=== PATIENT | male | born 1995 | race Two or more races ===

== ENCOUNTER 2019-11-30 07:18 | Emergency (ER) | payer MEDICAID ==
[~2019-11-30] VITALS: Ht 180.3 cm; Wt 114.4 kg
[2019-11-30] MEDS ORDERED: LORazepam 1MG TABLET PO ONE (08:00)
[2019-11-30] MEDS ORDERED: LORazepam 1MG TABLET ONE (08:13)
[2019-11-30 08:20] LABS: BASOPHILS # (AUTO) 0.03 x10^3/uL (0-0.1); BASOPHILS % (AUTO) 1 % (0-1); EOSINOPHILS # (AUTO) 0.04 x10^3/uL (0-0.4); EOSINOPHILS % (AUTO) 1 % (1-7); LYMPHOCYTES # (AUTO) 1.53 x10^3/uL (1-3.4); LYMPHOCYTES % (AUTO) 26 % (22-44); MD NO; MEAN CORPUSCULAR HEMOGLOBIN 32.9 pg (27.5-34.5); MEAN CORPUSCULAR VOLUME 96.7 fL (81-97); MEAN PLATELET VOLUME 10.4 fL (7.4-10.4); MONOCYTES # (AUTO) 0.68 x10^3/uL (0.2-0.8); MONOCYTES % (AUTO) 12 % (2-9); NEUTROPHILS # (AUTO) 3.64 x10^3/uL (1.8-6.8); NEUTROPHILS % (AUTO) 61 % (42-75); PLATELET COUNT 190 x10^3/uL (130-400); RED BLOOD COUNT 5.11 x10^6/uL (4.38-5.82); RED CELL DISTRIBUTION WIDTH 12.4 % (9.4-14.8)
[2019-11-30 08:30] LABS: ALBUMIN 4.7 g/dL (3.4-5.0); ANION GAP 9 mmol/L (5-15); CALCIUM 9.6 mg/dL (8.5-10.1); CHLORIDE 108 mmol/L (98-107)
[2019-11-30 08:32] LABS: ALANINE AMINOTRANSFERASE 184 U/L (12-78); ALKALINE PHOSPHATASE 54 U/L (45-117); BILIRUBIN,TOTAL 1.4 mg/dL (0.2-1.0); CREATININE 1.05 mg/dL (0.7-1.3); TOTAL PROTEIN 8.3 g/dL (6.4-8.2)
[2019-11-30 08:33] LABS: SALICYLATE LEVEL < 1.7 mg/dL (2.8-20.0)
[2019-11-30 08:35] LABS: AMPHETAMINE SCREEN, URINE Negative (Negative); BARBITURATE SCREEN, URINE Negative (Negative); BENZODIAZEPINE SCREEN, URINE Negative (Negative); CANNABINOID SCREEN, URINE Negative (Negative); COCAINE SCREEN, URINE Negative (Negative); METHADONE SCREEN, URINE Negative (Negative); OPIATE SCREEN, URINE Negative (Negative)
[2019-11-30 10:31] VITALS: BP 148/79
== END 2019-11-30 10:32 | disposition home or self-care (01) ==
LOC: ED 07:57
DX: F43.0 Acute stress reaction (principal); F41.9 Anxiety disorder, unspecified; F10.239 Alcohol dependence with withdrawal, unspecified; R44.3 Hallucinations, unspecified; F10.251 Alcohol dependence with alcohol-induced psychotic disorder with hallucinations; I10 Essential (primary) hypertension; Y90.0 Blood alcohol level of less than 20 mg/100 ml
CPT/HCPCS: 36415; 80053; 80307; 85025; 93005; 99284

== ENCOUNTER 2019-12-01 13:53 | Emergency (ER) | payer MEDICAID ==
[~2019-12-01] VITALS: Ht 180.3 cm; Wt 114.4 kg
[2019-12-01 13:58] VITALS: BP 143/98
--- NOTE | 2019-12-01 14:44 | NUR ---
Signed out AMA shortly after triage.
== END 2019-12-01 14:48 | disposition left against medical advice (07) ==
LOC: ED 14:08
DX: F41.9 Anxiety disorder, unspecified (principal)
CPT/HCPCS: 99281

== ENCOUNTER 2019-12-06 16:54 | Emergency (ER) | payer MEDICAID ==
[~2019-12-06] VITALS: Ht 180.3 cm; Wt 108.1 kg
--- NOTE | 2019-12-06 18:10 | NUR ---
TASK RN: PT TO ROOM FROM LOBBY, REFUSING TO REMOVE PANTS BUT AGREEABLE TO WEARING GOWN.
--- NOTE | 2019-12-06 18:23 | NUR ---
TASK RN: PT HERE WITH FAMILY. PT AAO X 3-4, FOLLOWING COMMANDS, VERY SLOW TO RESPOND. PER FAMILY, PT HAS A HX ANXIETY AND ANGER PROBLEMS AND SELF MEDICATES WITH DRUGS AND ETOH DAILY IN "LARGE AMOUNTS" PT IN GOWN AND ON MONITOR. SIDERAIL X [address] PT ON ROOM AIR, NAD, FAMILY AT BEDSIDE.
--- NOTE | 2019-12-06 18:29 | NUR ---
TASK RN: BEDSIDE REPORT GIVEN TO SKINNY LITTLEJOHN.
--- NOTE | 2019-12-06 18:31 | NUR ---
Note jennycan in EDM - 12/06/19 at 1835 by RACHEL Pt behaving in a disoriented manner, pt begins to answer questions and this is unable to answer them. Pts family reports that he uses drugs heavily and is unable to orient thoughts. Pt reports that he states this rn is the one who messed him up. This is first encounter with pt and rn. Pt left in [facility] and family asked to stay to keep patient calm. Appears to be a/ox3
--- NOTE | 2019-12-06 18:35 | NUR ---
Pt behaving in a disoriented manner, pt begins to answer questions and this is unable to answer them. Pts family reports that he uses drugs heavily and is unable to orient thoughts. Pt reports that he states this rn is the one who messed him up. This is first encounter with pt and rn. Pt left in [facility] and family asked to stay to keep patient calm. Appears to be a/ox3
[2019-12-06] MEDS ORDERED: LORazepam 1MG TABLET ONE (19:29)
[2019-12-06] MEDS ORDERED: LORazepam 1MG TABLET PO ONE (19:30)
--- NOTE | 2019-12-06 19:34 | NUR ---
Pt medicated per emar.
--- NOTE | 2019-12-06 19:42 | NUR ---
Pt asked for urine, pt unable to provide.
[2019-12-06] MEDS ORDERED: LORazepam 1MG TABLET PO PRN (20:30)
[2019-12-06] MEDS ORDERED: HALOPERIDOL 5 MG TABLET PO ONE (20:30)
[2019-12-06] MEDS ORDERED: HYDROcodone/APAP 5/325 TABLET PO ONE (20:30)
--- NOTE | 2019-12-06 21:00 | NUR ---
Sitter at bedside for continous safety monitoring. Present and remains at door.
[2019-12-06] MEDS ORDERED: HYDROcodone/APAP 5/325 TABLET ONE (21:17)
--- NOTE | 2019-12-06 21:34 | NUR ---
RAD x 2 attempts to get pt to Xray. unwilling and getting agitated.
--- NOTE | 2019-12-06 21:34 | NUR ---
Labs drawn, slow draw. Pt getting anxious with draw. Pt informed redraw may occur.
--- NOTE | 2019-12-06 21:37 | NUR ---
Pt medicated for pain.
[2019-12-06 21:42] LABS: BASOPHILS # (AUTO) 0.02 x10^3/uL (0-0.1); BASOPHILS % (AUTO) 0 % (0-1); EOSINOPHILS # (AUTO) 0.16 x10^3/uL (0-0.4); EOSINOPHILS % (AUTO) 2 % (1-7); LYMPHOCYTES # (AUTO) 2.01 x10^3/uL (1-3.4); LYMPHOCYTES % (AUTO) 23 % (22-44); MD NO; MEAN CORPUSCULAR HEMOGLOBIN 32.6 pg (27.5-34.5); MEAN CORPUSCULAR HGB CONC 33.2 g/dL (33.2-36.2); MEAN CORPUSCULAR VOLUME 98.2 fL (81-97); MEAN PLATELET VOLUME 11.1 fL (7.4-10.4); MONOCYTES # (AUTO) 0.72 x10^3/uL (0.2-0.8); MONOCYTES % (AUTO) 8 % (2-9); NEUTROPHILS # (AUTO) 5.68 x10^3/uL (1.8-6.8); NEUTROPHILS % (AUTO) 66 % (42-75); PLATELET COUNT 190 x10^3/uL (130-400); RED BLOOD COUNT 5.34 x10^6/uL (4.38-5.82); RED CELL DISTRIBUTION WIDTH 12.7 % (9.4-14.8)
--- NOTE | 2019-12-06 22:00 | NUR ---
Sitter at bedside for continous safety monitoring. Present and remains at door.
--- NOTE | 2019-12-06 23:00 | NUR ---
Sitter at bedside for continous safety monitoring. Present and remains at door.
--- NOTE | 2019-12-06 23:40 | NUR ---
LABS COLLECTEDAND SENT TO LAB.
[2019-12-06 23:41] LABS: ANION GAP 10 mmol/L (5-15); CALCIUM 9.4 mg/dL (8.5-10.1); CHLORIDE 111 mmol/L (98-107)
[2019-12-06 23:42] LABS: ALANINE AMINOTRANSFERASE 109 U/L (12-78); ALBUMIN 4.6 g/dL (3.4-5.0); SALICYLATE LEVEL < 1.7 mg/dL (2.8-20.0)
[2019-12-06 23:45] LABS: ALKALINE PHOSPHATASE 51 U/L (45-117); BILIRUBIN,TOTAL 1.1 mg/dL (0.2-1.0); TOTAL PROTEIN 8.6 g/dL (6.4-8.2)
--- NOTE | 2019-12-07 00:07 | NUR ---
late entry: pt on arrival reported visual halucinations that have resolved now. pt at no point has made homicidal statement or suicidal statments. Pts cognition at this time makes it difficult for him to answer questions but does answer some. Pt introduced to new SKINNY Wilkerson. Pt receptive and verbalizing he would drink more water. awaiting further orders.
--- NOTE | 2019-12-07 00:08 | NUR ---
BEDSIDE REPORT FROM SKINNY LITTLEJOHN. PT SITTING UP IN [facility], WENDY NOTED. PT CALM AND COOPERATIVE AT THIS TIME. PO FLUIDS PROVIDED; PT INTERACTING APPROPIRATELY WITH STAFF, RESPONDS "THANK YOU" TO FLUIDS PROVIDED. PT ANSWERING QUESTION APPROPRIATELY THOUGH SLOW TO RESPOND. URINAL AT BEDSIDE AND PT AWARE OF NEED FOR URINE SAMPLE. PT AGREES TO PROVIDE WHEN ABLE. PT/FAMILY UPDATED TO POC (UA/RESULTS/PSYCH CONSULT) AND IS AGREEABLE. PT IN NON-SECURE ROOM. ACCORDING TO REPORT, PT WITH IMPROVED COMPLIANCE AND IS NOW CALM- IN EFFORT TO NOT DISTURB MILLEU PT NOT TO BE MOVED AT THIS TIME. PT DENIES SI/HI AND HAS BEEN APPROPRIATE WITH CABLES/CORDS/FIXTURES IN ROOM. SITTER PRESENT.
--- NOTE | 2019-12-07 00:09 | NUR ---
bedside report to raghu medeiros.
--- NOTE | 2019-12-07 01:00 | NUR ---
PT SITTING UP IN [facility]. NO URINE PRODUCED. ADDITIONAL PO FLUIDS PROVIDED. FAMILY REMAINS AT BEDSIDE. SITTER PRESENT.
--- NOTE | 2019-12-07 01:45 | NUR ---
PT CONTINUES TO REPORT INABILITY TO PRODUCE UA. PT ASKED TO ATTEMPT. PT AMBULATED STEADILY TO BATHROOM WITH RN AND MOTHER TO ATTEMPT UA. APPROX 300ML DARK URINE PRODUCED. UA COLLECTED AND SENT TO LAB.
--- NOTE | 2019-12-07 02:04 | NUR ---
PT MOVED TO ROOM 39. PT IS COMPLIANT, BUT BECOMING RESTLESS WITH MOVE. WHILE RN WAS HELPING MOTHER COLLECT BELONGINGS, PT BECOMING AGGITATED "WHAT ARE YOU DOING WITH MY SHIT?!". MOTHER HAS CALMING EFFECT ON PT. PT/MOTHER TO NEW ROOM AND MADE COMFORTABLE. SITTER REMAINS PRESENT. POC IS SOC CONSULT FOLLOWING UDS/UA RESULTS. REPORT TO SKINNY POPE.
--- NOTE | 2019-12-07 02:13 | NUR ---
REPORT FROM NIVIA ASSUMED CARE OF PT, MOTHER AND SISTER AT , PT SLOW TO RESPOND TO QUESTIONS
[2019-12-07 02:24] LABS: MICROSCOPIC AUTO
[2019-12-07 02:33] LABS: CULTURE INDICATED? NO
[2019-12-07 02:35] LABS: AMPHETAMINE SCREEN, URINE Negative (Negative); BARBITURATE SCREEN, URINE Negative (Negative); BENZODIAZEPINE SCREEN, URINE Negative (Negative); CANNABINOID SCREEN, URINE Negative (Negative); COCAINE SCREEN, URINE Negative (Negative); METHADONE SCREEN, URINE Negative (Negative); OPIATE SCREEN, URINE Positive (Negative)
--- NOTE | 2019-12-07 03:02 | NUR ---
PT HAS HIS MOTHERS PURSE IN THE BED WITH HIM AT THIS TIME ROOM UNSECURED, SECURITY CALLED TO SECURE THE ROOM AN PTS BELONGINGS
--- NOTE | 2019-12-07 03:27 | NUR ---
ROOM SECURE DOORS DOWN, MOTHER AND SIBLING WENT HOME, SITTER AT BEDSIDE, BAG 1 OF 1 IN LOCKER
[2019-12-07] MEDS ORDERED: LORazepam 1MG TABLET ONE (03:40)
[2019-12-07] MEDS ORDERED: KETAMINE 100 MG/ML, 5ML IM ONE (04:00)
--- NOTE | 2019-12-07 04:30 | NUR ---
PT PACING ROOM SLAMMED DOOR SHUT WOULD NOT FOLLOW COMMANDS TO LAY IN GURNEY BEHAVIOR BECOMING HOSTILE POSTURING, SECURITY CALLED AND PLACED IN FUNMILAYO, PT MEDICATED PER MD ORDER
--- NOTE | 2019-12-07 04:30 | NUR ---
PTPLACED ON ALL MONITORS FOR CONTINOUS MONITORING SITTER AT DOOR
--- NOTE | 2019-12-07 07:07 | NUR ---
RECEIVED REPORT FROM NIKO RN AND ASSUMED CARE. PT IN HARD 4-POINT RESTRAINTS, IN DIRECT VIEW OF SITTER. PT WANTS OUT OF RESTRAINTS, SAYING HE WILL CUT THEM OFF. PT AGGRESSIVE TOWARDS NURSES SAYING WE ARE RETARDS. EXPLAINED TO PT HE WAS PUT IN THE RESTRAINTS FOR HIS SAFETY AND THAT HIS BEHAVIOR HAS TO IMPROVE BEFORE THEY ARE REMOVED.
--- NOTE | 2019-12-07 07:08 | NUR ---
THROUGHPUT RN: PT DECLINED BY 3E BHU.
--- NOTE | 2019-12-07 07:10 | NUR ---
PT ON HEART MONITOR, NSR.
--- NOTE | 2019-12-07 07:12 | NUR ---
THROUGHPUT RN: PACKET FAXED TO [facility].
--- NOTE | 2019-12-07 07:39 | NUR ---
ORDER RENEWED FOR BEHAVORIAL RESTRAINTS. TECH AT BEDSIDE PERFORMING REPEAT EKG
--- NOTE | 2019-12-07 07:58 | NUR ---
UNABLE TO PERFORM EKG BECAUSE PT HAS ENOUGH MOVEMENT OF HANDS TO PULL TABS OFF AND CABLES. DR KEENAN AT BEDSIDE EVALUATING PT AND GIVING PT OPTIONS OF BEING COOPERATIVE SO THAT MEDS CAN BE GIVEN TO HELP PT SLEEP SO THAT RESTRAINTS CAN BE REMOVED. PT WILL NOT RESPOND TO MD. SECURITY THEN AT BEDSIDE AND POSITION OF ARMS CHANGED FOR CIRCULATION AND COMFORT. PT OFFERED URINAL BUT NON RESPONSIVE
--- NOTE | 2019-12-07 08:13 | NUR ---
EKG ATTEMPTED WITH ASSISTANCE OF TWO TECHS. TO BE SHOWN TO
[2019-12-07] MEDS ORDERED: HALOPERIDOL 5 MG/ML IM ONE (08:30)
[2019-12-07] MEDS ORDERED: HALOPERIDOL 5 MG/ML ONE (08:42)
--- NOTE | 2019-12-07 08:48 | NUR ---
MEDICATED ORDERED WITH HALDOL. CONTINUE TO EXPLAIN TO PT THE GOAL OF REMOVING RESTRAINTS WITH MEDICATION GIVEN A STEP TOWARD SAME.
--- NOTE | 2019-12-07 09:10 | NUR ---
REPORT FROM KARY
--- NOTE | 2019-12-07 09:20 | NUR ---
REPORT TO STARR BABB
--- NOTE | 2019-12-07 09:30 | NUR ---
PT IS NOW SLEEPING. [facility]
--- NOTE | 2019-12-07 10:56 | NUR ---
PT REFUSING WATER. RESTRAINTS IN PLACE. PT IS NOT ANSWERING QUESTIONS OR COOPERATING
--- NOTE | 2019-12-07 12:00 | NUR ---
RESTRAINTS RENEWED. PT WILL NOT VERBALIZE OR COOPERATE W RN FOR SAFETY OF PT AND SELF.
--- NOTE | 2019-12-07 12:53 | NUR ---
PT SLEEPING, VS STABLE. RESTRAINTS IN PLACE
--- NOTE | 2019-12-07 13:45 | NUR ---
LUNCH RN: PT SLEEPING INTERMITTENTLY, NADN. VSS, HTN BP NOTED. CONNECTED TO ALL MONITORING. SITTER IN ALL FOR CONTINUOUS MONITORING.
--- NOTE | 2019-12-07 14:57 | NUR ---
THROUGHPUT RN: PT NOW W/ MEDICAID SILVERSUMMIT. NEW PACKET FAXED TO [facility].
--- NOTE | 2019-12-07 15:36 | NUR ---
PT AGREES TO BE COMPLIANT. ALL RESTRAINTS REMOVED BY SECURITY, GIVEN WATER AND URINAL. SITTER PRESENT
--- NOTE | 2019-12-07 15:56 | NUR ---
REPORT TO SHELLY, PT IS UNABLE TO BE TRANSFERRED UNTIL 12 HOURS AFTER RESTRAINTS REMOVED. PT SLEEPING IN BED TURNED ON SIDE. VS STABLE.
--- NOTE | 2019-12-07 16:39 | NUR ---
PT NOT ANSWERING QUESTIONS, WALKING TO DOOR, SECURITY CALLED. GREY BATES AND [employer] PROCESSING CLERK ENCOURAGING PT TO GO BACK TO THE BED AND STAY IN ROOM. PT STAYING IN ROOM, DRINKING WATER AND EATING MEAL TRAY. NEW LINENS PROVIDED.
[2019-12-07] MEDS ORDERED: HALOPERIDOL 5 MG TABLET PO PRN (17:00)
[2019-12-07] MEDS ORDERED: DIPHENHYDRAMINE 50 MG CAPSULE PO PRN (17:00)
[2019-12-07] MEDS ORDERED: HALOPERIDOL 5 MG/ML IM PRN (17:00)
[2019-12-07] MEDS ORDERED: LORazepam 2 MG/ML, 1ML ONE (17:08)
--- NOTE | 2019-12-07 17:25 | NUR ---
PT PROCEEDED TO DEFACATE ON THE FLOOR, THEN ATTEMPTED TO CLEAN IT UP. SECURITY CALLED TO ESCORT PT TO BED, PT IS NOT COOPERATING AND IS UNSAFE FOR STAFF AND PT. 2 POINT RESTRAINED. RIGHT WRIST AND LEFT FOOT. MEDICATED 2MG ATIVAN IV. PT CLEANED UP. MD CROW AT BEDSIDE FOR FACE TO FACE ASSESSMENT.
--- NOTE | 2019-12-07 17:35 | NUR ---
FAMILY CAME TO VISIT AND WANTED TO SEE PT. RN TOLD FAMILY IT WAS NOT APPROPIATE TO SEE PT AT THIS TIME. FAMILY AGREEABLE AND WILL CHECK IN TOMORROW.
[2019-12-07] MEDS: LORazepam 2 MG/ML, 1ML IM PRN (17:55)
--- NOTE | 2019-12-07 18:57 | NUR ---
PT RESTING. RESTRAINTS IN PLACE. SITTER PRESENT
--- NOTE | 2019-12-07 20:35 | NUR ---
PT AWAKE AND DROWSY, "I FEEL VERY TIRED" PT DOES NOT RECALL THE DAY. PT IS DOZING OFF AND ON. SITTER PRESENTS. RESRAINTS IN PLACE
--- NOTE | 2019-12-07 20:57 | NUR ---
REPORT TO SHAUNA
--- NOTE | 2019-12-07 21:15 | NUR ---
PT AWAKE ON GURNEY IN SECURED ROOM, SITTER AT DOORWAY. PT LOOKING AROUND, REFUSING TO SPEAK WITH NURSE OR STAFF. PT DEMONSTRATES CONT NEED FOR RESTRAINTS AT THIS TIME.
--- NOTE | 2019-12-07 23:01 | NUR ---
PT RESTING ON GURNEY, [address], CMS INTACT. SITTER AT DOORWAY AND WILL CONT TO MONITOR.
--- NOTE | 2019-12-08 00:05 | NUR ---
PT SLEEPING, SNORING ON GURNEY. RN WOKE PT UP FOR VITAL SIGNS AND TO ASSESS READINESS FOR DISCONT RESTRAINTS. PT STATES THAT HE WILL COOPERATE WITH STAFF AND STATES THAT HE JUST WANTS TO SLEEP. 2 POINT RESTRAINTS REMOVED AT THIS TIME. VSS AND SITTER AT THE DOORWAY FOR OBSERVATION.
[2019-12-08] MEDS ORDERED: AMOXICILLIN 500 MG CAPSULE ONE (00:46)
[2019-12-08] MEDS ORDERED: ACETAMINOPHEN 500 MG TABLET ONE (00:46)
--- NOTE | 2019-12-08 01:48 | NUR ---
PT SLEEPING ON GURNEY IN SECURED ROOM. RESPIRATIONS EQUAL AND UNLABORED. SITTER AT DOORWAY FOR OBSERVATION.
--- NOTE | 2019-12-08 04:54 | NUR ---
REC BS REPORT PT RESTING SITTER IN THE STAHL WATCHING THE PT WARM BLANKETS GIVEN
--- NOTE | 2019-12-08 07:14 | NUR ---
SITTER IS AT THE DOOR FOR SAFETY/SECURITY. JEFFERSON ARE DRAWN FOR SAFETY/SECURITY. BELONGINGS ARE LOCKED AND SECURED.
--- NOTE | 2019-12-08 07:19 | NUR ---
I AM ASSUMING CARE OF THIS PT FROM SANTIAGO (SKINNY) AT THIS TIME. SBAR WAS EXCHANGED AT THE BEDSIDE.
--- NOTE | 2019-12-08 08:20 | NUR ---
MEALBOY PROVIDED AND APPRECIATED. VS ARE STABLE, AND WDL. PT IS ON A HOSPITAL BED FOR COMFORT. I WILL CONTINUE TO MONITOR AND TREAT ORDERED, WELL PRN WHILE AWAITING ADMISSION TO A LOCAL [facility] F[facility] FOR PSYCHIATRIC THERAPY.
--- NOTE | 2019-12-08 08:54 | NUR ---
PT IS LYING ON THE FLOOR W SHEETS. EDUCATION PROVIDED IN REGARD TO THE COMFORT AVAILABLE, BUT ACCOMODATIONS HAVE BEEN REFUSED AT THIS TIME. EDUCATION PROVIDED IN REGARD TO OUR PLAN OF CARE.
--- NOTE | 2019-12-08 09:26 | NUR ---
PT IS NOT AGREEABLE TO CLOTHING. PRIVACY PROVIDED.
[2019-12-08] MEDS ORDERED: ONDANSETRON ODT 4 MG PO ONE (09:30)
[2019-12-08] MEDS ORDERED: LORazepam 1MG TABLET PO ONE (09:30)
[2019-12-08] MEDS ORDERED: LORazepam 1MG TABLET ONE ×3 (09:32→22:11)
[2019-12-08] MEDS: LORazepam 2 MG/ML, 1ML IM PRN (09:39)
--- NOTE | 2019-12-08 09:40 | NUR ---
PT WANDERED OUT OF ROOM, PAST SITTER, AND INTO PARKING LOT. SECURITY NOTIFIED. PT WAS RE-DIRECTED BACK TO HIS ROOM WITHOUT THE USE OF PHYSICAL RESTRAINT. UPON RETURN TO HIS ROOM, HE WALKED INTO ANOTHER PT ROOM. HE HAD TO BE PHYSICALLY RESTRAINED IN ORDER TO HAVE HIME REMOVED. SECURITY RESTRAINED HIM TO THE BED IN ROOM 39 WITH 4PT LEATHER RESTRAINTS. MEDICAL RESTRAINT HAS BEEN ADMINISTERED VIA THE MAR. HE IS CURRENTLY TALKING WITH FAMILY. ANDF PULLING AT RESTRAINTS.
[2019-12-08] MEDS ORDERED: DIPHENHYDRAMINE 50 MG/ML, 1ML ONE ×2 (09:41→22:45)
[2019-12-08] MEDS ORDERED: LORazepam 2 MG/ML, 1ML ONE ×2 (09:41→16:37)
--- NOTE | 2019-12-08 09:46 | NUR ---
THROUGHPUT: LM ON VM FOR PARKING WORKER TO SEE PT TODAY & REVIEW/ORDER MEDS PER DR CALVO REQUEST.
[2019-12-08] MEDS ORDERED: LORazepam 2 MG/ML, 1ML IM ONE (10:00)
[2019-12-08] MEDS ORDERED: DIPHENHYDRAMINE 50 MG/ML, 1ML IM ONE (10:00)
--- NOTE | 2019-12-08 10:04 | NUR ---
FAMILY IS AT THE BEDSIDE. THEY ARE SUPPORTIVE, AND SOOTHING TO THIS PT.
--- NOTE | 2019-12-08 10:35 | NUR ---
PT VERY CALM, AND COOPERATIVE. HE STATES THAT HE HAS NO RECOLLECTION OF THE RECENT THREATENING EVENTS. HIS MOTHER IS AT THE BEDSIDE, AND IS A POSITIVE INFLUENCE TO HIS BEHAVIORS. NO FURTHER PHYSICAL RESTRAINT IS NECESARY AT THIS TIME. I WILL CONTINUE TO MONITOR AND TREAT ORDERED, WELL PRN.
--- NOTE | 2019-12-08 11:30 | NUR ---
mother remains at the bedside, and is a healthy support. pt agreeable to po meds.
[2019-12-08] MEDS ORDERED: OLANZAPINE 10 MG INJ IM ONE (12:00)
[2019-12-08] MEDS ORDERED: OLANZAPINE 10 MG TABLET ONE (12:13)
[2019-12-08] MEDS ORDERED: OLANZAPINE 10 MG TABLET PO SCH (12:30)
--- NOTE | 2019-12-08 13:02 | NUR ---
sergey exchanged duane michelle (rn) at the bedside at this time. he is assuming care of this pt at this time.
--- NOTE | 2019-12-08 13:09 | NUR ---
Bedside report from Dao. Pt lying in hospital bed calm and collective at this time. Mom at bedside. NAD noted. Will continue to monitior.
--- NOTE | 2019-12-08 14:45 | NUR ---
WENT IN TO SPEAK WITH PT, AND PT CURRENTLY ALSEEP. EQUAL RISE AND FALL OF CHEST. NAD NOTED. MOM CONTINUES TO BE AT BEDSIDE.
--- NOTE | 2019-12-08 16:41 | NUR ---
PT BECOMING MORE AGITATED. FAMILY ASKING IF THERE IS ANY MEDICATION FOR HIM. SPOKE WITH PATIENT AND HE DOES APPEAR MORE ANXIOUS. REVIEW eMAR AND PT WAS MEDICATED. 5 RIGHTS VERIFIED PRIOR. 3 P'S ADDRESSED. SITTER OUTSIDE ROOM. WILL CONTINUE TO MONITOR.
--- NOTE | 2019-12-08 17:30 | NUR ---
PATIENT GIVEN FOOD TRAY. BED MOVED SO PAITENT CAN WATCH TV. FAMILY AT BEDSIDE. PT DID ASKED FOR PHONE. EDUCATED PT ON POLICY AND THAT PHONE CAN NOT BE HAD AT THIS TIME.
--- NOTE | 2019-12-08 18:29 | NUR ---
PT RESTING IN HOSPITAL BED. FAMILY AT BEDSIDE. ROOM SECURE. SITTER OUTSIDE ROOM.
--- NOTE | 2019-12-08 18:49 | NUR ---
Jaylen huynh in [facility] - 12/08/19 at 1849 by MICHELA REPORT TO SKINNY SLOAN.
--- NOTE | 2019-12-08 18:49 | NUR ---
REPORT TO SKINNY SLOAN.
--- NOTE | 2019-12-08 19:36 | NUR ---
PT SLEEPING ON HOSPITAL BED, MEGHAN VAZQUEZ REMAINS IN HALLWAY FOR SAFETY AND FREQUENT CHECKS
--- NOTE | 2019-12-08 20:53 | NUR ---
PT RESTING ON HOSPITAL BED, RESP EVEN AND UNLABORED, MEGHAN. SITTER REMAINS IN STAHL FOR SAFETY AND FREQUENT CHECKS
--- NOTE | 2019-12-08 21:05 | NUR ---
PT REQUESTING "PILL TO CALM DOWN." MD TO BE UPDATED
[2019-12-08] MEDS: LORazepam 1MG TABLET PO ONE ×2 (21:08→21:30)
--- NOTE | 2019-12-08 21:10 | NUR ---
PT REFUSING MEDS AT THIS TIME
--- NOTE | 2019-12-08 21:49 | NUR ---
PT RESTING IN BED, ROOM SECURE, SITTER AT BEDSIDE, NO COMPLAINTS AT THIS TIME
--- NOTE | 2019-12-08 22:13 | NUR ---
PT UP AND WALKING, GIVEN PO ATIVAN ON REQUEST, NO COMPLAINTS
[2019-12-08] MEDS ORDERED: HALOPERIDOL 5 MG/ML ONE (22:45)
[2019-12-08] MEDS: DIPHENHYDRAMINE 50 MG/ML, 1ML IM PRN (22:50)
[2019-12-08] MEDS: HALOPERIDOL 5 MG/ML IM PRN (22:50)
--- NOTE | 2019-12-08 22:51 | NUR ---
PT GETTING MORE AGITATED PER SITTER, AGREED TO IM SHOT TO HELP HIM RELAX. NO OTHER COMPLAINTS AT THIS TIME
--- NOTE | 2019-12-08 23:26 | NUR ---
PT WALKING AROUND UNIT AGAIN, REDIRECTED BACK TO BED
--- NOTE | 2019-12-09 00:24 | NUR ---
PT RESTING IN BED, ROOM SECURE, SITTER AT BEDSIDE, NO COMPLAINTS AT THIS TIME
--- NOTE | 2019-12-09 01:39 | NUR ---
PT SLEEPING IN BED, ROOM SECURE, SITTER AT BEDSIDE, NO COMPLAINTS AT THIS TIME
--- NOTE | 2019-12-09 04:00 | NUR ---
PT SLEEPING IN BED, ROOM SECURE, SITTER AT BEDSIDE, NO COMPLAINTS AT THIS TIME
--- NOTE | 2019-12-09 05:02 | NUR ---
PT SLEEPING IN BED, ROOM SECURE, SITTER AT BEDSIDE, NO COMPLAINTS AT THIS TIME
--- NOTE | 2019-12-09 05:11 | NUR ---
REPORT FROM SKINNY WADSWORTH. PT RESTING, NO NEEDS OR CONCERNS AT THIS TIME.
--- NOTE | 2019-12-09 06:55 | NUR ---
RECEIVED BEDSIDE REPORT FROM SKINNY NATION. PER REPORT PT CAN BE VIOLENT AND HX OF METH USE.
--- NOTE | 2019-12-09 07:29 | NUR ---
pt given water per request. pt was ambulatory with steady gait to bathroom. pt has flat affect. all safety measures obtained. sitter at doorway.
--- NOTE | 2019-12-09 07:46 | NUR ---
pt refusing medications at this time. pt states "i'll take them later." pt gave meds back to this rn. will continue to monitor.
--- NOTE | 2019-12-09 08:32 | NUR ---
DIET TRAY DELIVERED
[2019-12-09] MEDS ORDERED: PALIPERIDONE 3 MG TAB.ER.24 PO SCH ×2 (09:00)
--- NOTE | 2019-12-09 09:12 | NUR ---
PT TO BATHROOM AT THIS TIME.
[2019-12-09] MEDS ORDERED: DIPHENHYDRAMINE 50 MG/ML, 1ML ONE (10:10)
[2019-12-09] MEDS ORDERED: HALOPERIDOL 5 MG/ML ONE (10:10)
[2019-12-09] MEDS: DIPHENHYDRAMINE 50 MG/ML, 1ML IM PRN (10:15)
[2019-12-09] MEDS: HALOPERIDOL 5 MG/ML IM PRN (10:16)
--- NOTE | 2019-12-09 10:27 | NUR ---
PER SITTER, PT SHOVED HIM. PT WAS REDIRECTED BACK TO BED. PT ASKED IF HE WANTED SOME MEDICATION TO HELP WITH HIS MOOD. PT STATES HE DOES. MEDICATION ADMINISTERED PER ORDER.
--- NOTE | 2019-12-09 11:27 | NUR ---
PT REFUSING EKG AT THIS TIME. CALEB EDMONDS, REQUESTED EKG.
--- NOTE | 2019-12-09 12:03 | NUR ---
BEDSIDE REPORT TO BREAK ROBBIE BABB.
--- NOTE | 2019-12-09 12:35 | NUR ---
BREAK RN: PT GIVEN TRAY. SITTER IN PLACE.
--- NOTE | 2019-12-09 13:14 | NUR ---
REPORT RECEIVED FROM SKINNY JONES.
--- NOTE | 2019-12-09 14:24 | NUR ---
EKG PERFORMED, PT COOPERATIVE WITH PROCEDURE. PT NOW RESTING ON HOSPITAL BED. SITTER AT BEDSIDE. ROOM SECURE.
--- NOTE | 2019-12-09 14:32 | NUR ---
MED REC COMPLETED TO THE BEST OF THIS RN'S ABILITY.
[2019-12-09] MEDS ORDERED: LORazepam 2 MG/ML, 1ML ONE (14:48)
[2019-12-09] MEDS: LORazepam 2 MG/ML, 1ML IM PRN (14:54)
--- NOTE | 2019-12-09 14:55 | NUR ---
PT REQUESTING MEDICATION- MEDICATED PER EMAR AND PROVIDED WITH WATER. SITTER AT BEDSIDE. ROOM SECURE. RESTING ON HOSPITAL BEDS. DENIES FURTHER NEEDS.
--- NOTE | 2019-12-09 16:01 | NUR ---
DINNER TRAY ORDERED FOR PT.
[2019-12-09] MEDS ORDERED: DIPHENHYDRAMINE 25 MG CAPSULE PO PRN (17:00)
[2019-12-09] MEDS ORDERED: HALOPERIDOL 5 MG TABLET PO PRN (17:00)
[2019-12-09] MEDS ORDERED: LORazepam 1MG TABLET PO PRN (17:00)
--- NOTE | 2019-12-09 17:06 | NUR ---
PT RESTING ON HOSPITAL BED. VSS. NADN. ROOM SECURE. SITTER AT BEDSIDE.
--- NOTE | 2019-12-09 17:09 | NUR ---
THROUGHPUT RN: PT PACKET RESENT TO [facility], [facility] AND [facility] FOR RE-EVAL FOR ADMISSION. PT HAS BEEN UNRESTRAINED FOR OVER 24 HOURS.
--- NOTE | 2019-12-09 17:36 | NUR ---
SITTER PROVIDED WITH PT'S DINNER TRAY PT IS SLEEPING NOW. PT SLEEPING ON HOSPITAL BED. RESPIRATIONS EVEN AND UNLABORED. MEGHAN. SITTER AT BEDSIDE. ROOM SECURE.
--- NOTE | 2019-12-09 17:53 | NUR ---
PT'S BROTHER ASKING IF HE CAN PROVIDE PT WITH FOOD OUTSIDE OF HOSPITAL. THIS RN REQUESTED THAT FOOD BE SHOWN TO SITTER BEFORE GIVING IT TO PT. PT'S BROTHER STATES THIS IS NO PROBLEM. PT'S MOTHER AT BEDSIDE NOW. SITTER IN HALLWAY. ROOM SECURE.
--- NOTE | 2019-12-09 18:30 | NUR ---
PT'S BROTHER AND MOTHER AT BEDSIDE NOW; PT EATING SAMI FOOD BROUGHT BY BROTHER. PT SITTING ON HOSPITAL BED. WENDYN. SITTER AT BEDSIDE. ROOM SECURE.
--- NOTE | 2019-12-09 19:33 | NUR ---
pt resting calmly, room secured, nad, respirations even and unlabored, sitter at doorway for continous monitoring.
[2019-12-09 19:55] VITALS: BP 132/83
--- NOTE | 2019-12-09 20:35 | NUR ---
mary social worker palliative care on telephone, updates regarding pt status provided by this rn, informed that [facility] pritchett will be accepting pt, requesting transfer to be set up for 12 midnight, thoughput rn updated
[2019-12-09] MEDS ORDERED: IBUPROFEN 600 MG TABLET ONE (20:44)
--- NOTE | 2019-12-09 20:50 | NUR ---
pt c/o h/a, requesting medication. erp updated and will place order for miguel
--- NOTE | 2019-12-09 20:55 | NUR ---
pt medicated per mar
[2019-12-09] MEDS ORDERED: IBUPROFEN 600 MG TABLET PO ONE (21:00)
--- NOTE | 2019-12-09 21:25 | NUR ---
pt sitting up in chair, family at bedside, nad, denies needs at this time, sitter at doorway for continous monitoring
--- NOTE | 2019-12-09 22:57 | NUR ---
report given to mala sabillon at [facility]
--- NOTE | 2019-12-09 23:18 | NUR ---
ag at pt's bedside for transfer to [facility], report given, pt ambulated with steady gait out of hospital with remsa Addendum: 12/09/19 at 2319 by GABE pt transferred with belongings bag x1
== END 2019-12-09 23:21 ==
LOC: ED 19:54
DX: F23 Brief psychotic disorder (principal); I10 Essential (primary) hypertension; F17.210 Nicotine dependence, cigarettes, uncomplicated; M54.5 Low back pain; F32.9 Major depressive disorder, single episode, unspecified
CPT/HCPCS: 36415; 74021; 80053; 80307; 81001; 85025; 93005; 96372; 99285; J1200; J1630; J2060

== ENCOUNTER 2020-08-28 17:22 | Emergency (ER) | payer MEDICAID ==
[~2020-08-28] VITALS: Ht 185.4 cm; Wt 123.8 kg
[2020-08-28 18:07] LABS: BASOPHILS % (AUTO) 0 % (0-1); EOSINOPHILS % (AUTO) 1 % (1-7); LYMPHOCYTES % (AUTO) 22 % (22-44); MEAN CORPUSCULAR HEMOGLOBIN 32.7 pg (27.5-34.5); MEAN PLATELET VOLUME 11.9 fL (7.4-10.4); MONOCYTES % (AUTO) 10 % (2-9); NEUTROPHILS % (AUTO) 67 % (42-75); PLATELET COUNT 192 x10^3/uL (130-400); RED BLOOD COUNT 5.37 x10^6/uL (4.38-5.82); RED CELL DISTRIBUTION WIDTH 13.1 % (9.4-14.8)
[2020-08-28 18:13] LABS: MD NO
[2020-08-28 18:14] LABS: ALBUMIN 4.7 g/dL (3.4-5.0); ANION GAP 13 mmol/L (5-15); CALCIUM 10.2 mg/dL (8.5-10.1); CHLORIDE 108 mmol/L (98-107)
[2020-08-28 18:21] LABS: ALANINE AMINOTRANSFERASE 272 U/L (12-78); ALKALINE PHOSPHATASE 126 U/L (45-117); BILIRUBIN,TOTAL 0.9 mg/dL (0.2-1.0); CREATININE 1.28 mg/dL (0.7-1.3); TOTAL PROTEIN 8.9 g/dL (6.4-8.2); TROPONIN I < 0.015 ng/mL (0.000-0.045)
[2020-08-28 20:59] VITALS: BP 152/89
== END 2020-08-28 21:01 | disposition home or self-care (01) ==
LOC: ED 20:00
DX: R07.89 Other chest pain (principal); R20.2 Paresthesia of skin; F41.1 Generalized anxiety disorder; R94.5 Abnormal results of liver function studies; R00.0 Tachycardia, unspecified; I10 Essential (primary) hypertension
CPT/HCPCS: 36415; 80053; 80307; 83735; 84484; 85025; 93005; 99284